=== PATIENT | female | born 1995 | race Hispanic/Latino ===

== ENCOUNTER 2016-10-07 22:07 | Emergency (ER) | payer OTHER ==
[~2016-10-07] VITALS: Ht 157.5 cm; Wt 51.9 kg
[~2016-10-07 22:07] MED LIST: TESSALON PERLE100 MG PO
[2016-10-07 23:20] LABS: CHLORIDE 107 mEq/L (99-109); POTASSIUM 3.3 mEq/L (3.7-5.4); SODIUM 140 mEq/L (136-147)
[2016-10-07 23:22] LABS: GLUCOSE 94 mg/dL (70-99)
[2016-10-07 23:23] LABS: ANION GAP 10 MEQ/L (2-14)
[2016-10-07 23:25] LABS: HEMATOCRIT 28.7 % (36.0-46.0); MCH 19.8 PG (29.0-34.0); MCHC 28.9 G/DL (30.0-36.0); MCV 68.5 FL (83-99); MEAN PLAT.VOLUME 11.3 uM^3 (9.5-12.4); PLATELET COUNT 195 K/uL (156-360); RBC DIS.WIDTH-CV 18.1 % (11.8-14.6); RBC DIS.WIDTH-SD 43.8 % (39-53); RED BLOOD COUNT 4.19 M/uL (3.80-5.20)
[2016-10-07 23:26] LABS: GFR ESTIMATE (CALCULATED) > 59 mL/min/
[2016-10-07 23:27] LABS: UREA NITROGEN (BUN) 14 mg/dL (9-23)
[2016-10-07 23:31] LABS: TROP-I INTERPRETATION NEGATIVE; TROPONIN-I < 0.01 ng/mL (0.0-0.30)
[2016-10-07 23:35] LABS: QUANTITATIVE HCG < 4.0 MIU/ML
[2016-10-08] MEDS ORDERED: ATARAX,VISTARIL50 MG PO (00:51)
[2016-10-08 01:14] VITALS: BP 101/61
== END 2016-10-08 01:19 | disposition home or self-care (01) ==
LOC: EME 22:07 → EXP 22:07
PROVIDERS: Physician Assistant
DX: R00.0 Tachycardia, unspecified (principal); F41.9 Anxiety disorder, unspecified; F17.200 Nicotine dependence, unspecified, uncomplicated
CPT/HCPCS: 71020; 71275; 80048; 84484; 84702; 85027; 85379; 93005; 99281; 99285; J7030

== ENCOUNTER 2017-01-26 19:05 | Emergency (ER) | payer OTHER ==
[~2017-01-26] VITALS: Ht 157.5 cm; Wt 51.6 kg
[~2017-01-26 19:05] MED LIST changes: +ATARAX,VISTARIL50 MG PO
[2017-01-26 19:45] LABS: CHLORIDE 105 mEq/L (99-109); POTASSIUM 3.4 mEq/L (3.7-5.4); SODIUM 137 mEq/L (136-147)
[2017-01-26 19:47] LABS: GLUCOSE 104 mg/dL (70-99)
[2017-01-26 19:48] LABS: ANION GAP 8 MEQ/L (2-14)
[2017-01-26 19:49] LABS: HEMATOCRIT 27.1 % (36.0-46.0); MCH 19.4 PG (29.0-34.0); MCHC 28.8 G/DL (30.0-36.0); MCV 67.2 FL (83-99); PLATELET COUNT 269 K/uL (156-360); RBC DIS.WIDTH-CV 18.2 % (11.8-14.6); RBC DIS.WIDTH-SD 43.4 % (39-53); RED BLOOD COUNT 4.03 M/uL (3.80-5.20); TOTAL BILIRUBIN 0.6 mg/dL (0.0-1.0); WHITE BLOOD COUNT 6.2 K/uL (4.1-10.2)
[2017-01-26 19:50] LABS: ALKALINE PHOSPHATASE 72 IU/L (3-129)
[2017-01-26 19:51] LABS: GFR ESTIMATE (CALCULATED) > 59 mL/min/
[2017-01-26 19:52] LABS: UREA NITROGEN (BUN) 15 mg/dL (9-23)
[2017-01-26 19:54] LABS: ADD MIUA? YES; BILIRUBIN NEGATIVE; BLOOD NEGATIVE; COLOR YELLOW ((YELLOW)); GLUCOSE (STRIP) NEGATIVE; KETONES 20; LEUKOCYTES NEGATIVE; NITRITE NEGATIVE; PROTEIN (STRIP) 30; SPECIFIC GRAVITY 1.038 (1.000-1.030)
[2017-01-26 19:59] LABS: QUANTITATIVE HCG < 4.0 MIU/ML
[2017-01-26 20:01] LABS: BACTERIA RARE /HPF; EPITHELIAL CELLS RARE /HPF; MUCUS TRACE /LPF; RED BLOOD CELLS 0-5 /HPF (0-5); UCUL ADDED? YES; UNCLASSIFIED CRYSTALS 1+ /HPF
[2017-01-26] MEDS ORDERED: BENTYL20 MG PO (22:50)
[2017-01-26] MEDS ORDERED: ZOFRAN ODT4 MG PO (22:50)
[2017-01-26 23:12] VITALS: BP 94/57
== END 2017-01-26 23:32 | disposition home or self-care (01) ==
LOC: EME 19:05
DX: K29.70 Gastritis, unspecified, without bleeding (principal)
CPT/HCPCS: 80053; 81003; 84702; 85027; 87086; 99281; 99285; J2405; J7030

== ENCOUNTER 2017-08-23 17:09 | Emergency (ER) | payer OTHER ==
[~2017-08-23] VITALS: Ht 157.5 cm; Wt 54.6 kg
[~2017-08-23 17:09] MED LIST changes: +BENTYL20 MG PO; +ZOFRAN ODT4 MG PO
[2017-08-23 19:11] LABS: INTER. NORMALIZED RATIO 1.1
[2017-08-23 19:13] LABS: HEMATOCRIT 30.7 % (36.0-46.0); HEMOGLOBIN 9.4 G/DL (11.9-15.5); MCH 22.7 PG (29.0-34.0); MCHC 30.6 G/DL (30.0-36.0); MCV 74.2 FL (83-99); PLATELET COUNT 218 K/uL (156-360); PTT 29.9 SEC (25-37); RBC DIS.WIDTH-CV 19.1 % (11.8-14.6); RBC DIS.WIDTH-SD 51.2 % (39-53); RED BLOOD COUNT 4.14 M/uL (3.80-5.20); WHITE BLOOD COUNT 8.2 K/uL (4.1-10.2)
[2017-08-23 19:14] LABS: CHLORIDE 109 mEq/L (99-109); POTASSIUM 3.7 mEq/L (3.7-5.4); SODIUM 143 mEq/L (136-147)
[2017-08-23 19:16] LABS: GLUCOSE 85 mg/dL (70-99)
[2017-08-23 19:20] LABS: CREATININE 0.6 mg/dL (0.6-1.3); GFR ESTIMATE (CALCULATED) > 59 mL/min/
[2017-08-23 19:21] LABS: UREA NITROGEN (BUN) 12 mg/dL (9-23)
[2017-08-23 19:28] LABS: QUANTITATIVE HCG < 4.0 MIU/ML
[2017-08-23 20:18] VITALS: BP 110/66
== END 2017-08-23 20:18 | disposition home or self-care (01) ==
LOC: EME 17:09
PROVIDERS: Internal Medicine; Nurse Practitioner Family
DX: M79.1 Myalgia (principal); D50.0 Iron deficiency anemia secondary to blood loss (chronic); T50.905A Adverse effect of unspecified drugs, medicaments and biological substances, initial encounter; Z98.890 Other specified postprocedural states; Z82.49 Family history of ischemic heart disease and other diseases of the circulatory system
CPT/HCPCS: 80048; 84702; 85027; 85610; 85730; 86850; 86900; 86901; 99281; 99285; J1200; J2930; J7120; S0028

== ENCOUNTER → 2017-09-25 | Outpatient (CLI) | payer OTHER | END | disposition home or self-care (01) | LOC: CDC 10:56 | DX: Z01.810 Encounter for preprocedural cardiovascular examination (principal); I49.8 Other specified cardiac arrhythmias | CPT/HCPCS: 93000 ==

== ENCOUNTER 2017-10-01 05:38 | Day surgery (SDC) | payer OTHER ==
[~2017-10-01] VITALS: Ht 157.5 cm; Wt 54.4 kg
[2017-10-01 06:16] VITALS: BP 104/62
[2017-10-01 11:00] VITALS: BP 89/47
[2017-10-01 12:00] VITALS: BP 94/54
[2017-10-01 13:57] VITALS: BP 95/55
[2017-10-01 16:00] VITALS: BP 107/56
== END 2017-10-01 16:07 | disposition home or self-care (01) ==
LOC: SDC
DX: N92.1 Excessive and frequent menstruation with irregular cycle (principal); D50.0 Iron deficiency anemia secondary to blood loss (chronic); N94.6 Dysmenorrhea, unspecified; Z82.49 Family history of ischemic heart disease and other diseases of the circulatory system; N94.10 Unspecified dyspareunia; N73.6 Female pelvic peritoneal adhesions (postinfective)
CPT/HCPCS: 84702; 85025; 86850; 86900; 86901; 88305; J0690; J1100; J1170; J1885; J2250; J2405; J2710; J3010; J7643